=== PATIENT | female | born 2000 | race Caucasian/White ===

== ENCOUNTER 2025-08-11 13:02 | Emergency (ER) | payer BC, SELFPAY ==
--- NOTE | ~2025-08-11 | CT_ITS ---
CLINICAL HISTORY: lower abd pain --- Additional Notes or Special Instructions: No IV @ 17:01 - JR CT abdomen and pelvis with contrast Comparison: None available Findings: No consolidation at the lung bases. Underdistended gallbladder. Unremarkable bladder. Focal fat at the falciform ligament. 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 The other solid organs are unremarkable. No bowel wall thickening or dilation. A normal appendix is identified. Normal vasculature. No lymphadenopathy. No ascites. No acute osseous abnormality. Impression: No acute findings. This document has been electronically signed by: Opal Gaming MD on 08/11/2025 18:10:46
[2025-08-11 13:27] VITALS: BP 119/60; PULSE 91; RESP 20; TEMP 36.8; O2SAT 99; BMI 29.1
--- NOTE | 2025-08-11 13:27 | ED.GENADULT ---
HPI - General Adult General Chief complaint: Urogenital-Female Stated complaint: vaginal pressure, bruise on rt breast no inj Time Seen by Provider: 08/11/25 16:02 Related Data Allergies Allergy/AdvReac Type Severity Reaction Status Date / Time No Known Allergies Allergy Verified 08/11/25 13:29 [facility] Social History Social History Smoked in Last 30 Days: No Use of substances other than those prescribed or required for medical reasons: No Advance Directives: No Advance Directives Information Provided: No Do you have a plan to hurt others: No Plan Patient : No Physical Exam ED Vital Signs: Vital Signs - 24 hr 08/11/25 13:27 08/11/25 16:06 Temperature 98.2 F 98.6 F Pulse Rate 91 74 Respiratory Rate 20 16 Blood Pressure 119/60 109/70 Pulse Oximetry 99 100 Oxygen Delivery Method Room Air Room Air BMI result Body Mass Index 29.1 Course Course Course Narrative: Rapid medical examination performed in triage by Gilda Hussein PA-C. Patient is a 25 year old assigned female at presenting to the emergency department with a right breast bruise without trauma and pelvic pressure. Patient states she noticed her right breast has some yellow discoloration like a bruise even though she has had no trauma to the area and is having pelvic pressure. Detailed physical exam and review of systems are deferred to the flying teacher. Labs ordered. Patient placed back in the waiting room pending room availability and results. Medications Administered Discontinued Medications Generic Name Dose Route Start Last Admin Trade Name Felipeq PRN Reason Stop Dose Admin Iohexol 85 ml 08/11/25 17:44 08/11/25 17:44 Iohexol 350 Mg/Ml 100 Ml Infus..Btl IV 08/11/25 17:45 85 ml ONCE ONE Administration Ketorolac Tromethamine 15 mg 08/11/25 16:43 08/11/25 17:05 Ketorolac Tromethamine 15 Mg/Ml Vial IVPUSH 08/11/25 16:44 15 mg ONCE ONE Administration Medical Decision Making Lab Data 08/11/25 13:38 08/11/25 13:38 Labs: Lab Results 08/11/25 08/11/25 08/11/25 Range/Units 13:38 16:09 17:03 WBC 6.1 (4.8-10.8) X10*3/uL RBC 4.37 (4.20-5.50) X10*6/uL Hgb 13.8 (12.0-16.0) g/dl Hct 40.2 (37.0-47.0) % MCV 92.0 (80.0-98.0) fL MCH 31.6 (27.0-33.0) pg MCHC 34.3 (31.0-35.0) g/dl RDW 11.6 (11.0-16.0) % Plt Count 208 (160-400) X10*3/uL MPV 9.4 (9.4-12.3) fL Immature Gran % (Auto) 0.2 (0.0-0.4) % Neut % (Auto) 65.4 (45-73) % Lymph % (Auto) 24.4 (20-40) % [place] % (Auto) 6.9 (2-11) % Eos % (Auto) 2.6 (0-4) % Baso % (Auto) 0.5 (0-2) % Lymph # (Auto) 1.5 (1.2-4.9) X10*3/uL [place] # (Auto) 0.4 (0.1-1.2) X10*3/uL Eos # (Auto) 0.2 (0.0-0.4) X10*3/uL Baso # (Auto) 0.0 (0.0-0.2) X10*3/uL Abs Immat Gran (auto) 0.01 (0.00-0.03) X10*3/uL Absolute Neuts (auto) 4.0 (2.0-8.3) x10*3/uL Absolute Nucleated RBC 0.000 (0.0-0.012) X10*3/uL Nucleated RBC % (auto) 0.0 (0.0-0.2) /100WBC PT 12.1 (10.9-12.4) SEC INR 1.1 (0.9-1.1) Sodium 142 (135-145) mmol/L Potassium 3.7 (3.3-5.1) mmol/L Chloride 110 H (96-108) mmol/L Carbon Dioxide 27 (22-29) mmol/L Anion Gap 9 L (12-20) BUN 14 (9-16) mg/dL Creatinine 0.82 (0.5-1.4) mg/dL Estim Creat Clear Calc 105.1 Estimated GFR > 60 Random Glucose 79 (60-115) mg/dL Calcium 8.9 (8.4-10.2) mg/dL Magnesium 2.0 (1.6-2.6) mg/dL Total Bilirubin 0.6 (0.0-1.0) mg/dL AST 15 (5-31) U/L ALT 9 (0-31) U/L Alkaline Phosphatase 45 (39-117) U/L Total Protein 7.0 (6.5-8.0) g/dL Albumin 4.3 (3.5-5.0) g/dL Beta HCG, Quant < 2 mIU/mL Urine Color Yellow Urine Appearance Clear Urine pH 8.0 (5.0-9.0) Ur Specific [place] <= 1.005 (1.005-1.025) Urine Protein Negative (Neg-Trace) mg/dL Urine Glucose (UA) Negative (Negative) mg/dL Urine Ketones Negative (Negative) mg/dL Urine Blood Large (3+) H (Negative) Urine Nitrite Negative (Negative) Ur Leukocyte Esterase Small (1+) H (Negative) Urine RBC 0-2 (0-2) /HPF Urine WBC 0-5 (0-5) /HPF Ur Squamous Epith Cells 0-2 (0-2) /HPF Urine Bacteria None Seen (None Seen) Hyaline Casts 0-2 (0-2) /LPF Discharge Plan Discharge Clinical Impression: Abdominal pain Patient Disposition: Home, Self-Care Instructions: Abdominal Pain (ED) Additional Instructions: Risk of STD still exists. Please practice safe sex practices. Worsened pain return to the ED Referrals: [facility] [Primary Care Provider, Primary Care] - 08/13/25 Print Language: Persian
[2025-08-11 13:43] LABS: Hematocrit 40.2 % (37.0-47.0); Hemoglobin 13.8 g/dl (12.0-16.0); Imm Gran Abs Auto 0.01 X10*3/uL (0.00-0.03); Imm Gran Pct Auto 0.2 % (0.0-0.4); Lymphocytes Absolute Auto 1.5 X10*3/uL (1.2-4.9); MANUAL DIFF FLAG NO; Mean Corpuscular HGB Conc 34.3 g/dl (31.0-35.0); Mean Corpuscular Hemoglobin 31.6 pg (27.0-33.0); Mean Corpuscular Volume 92.0 fL (80.0-98.0); NRBC Abs Auto 0.000 X10*3/uL (0.0-0.012); NRBC Pct Auto 0.0 /100WBC (0.0-0.2); Platelet Count 208 X10*3/uL (160-400); Red Blood Count 4.37 X10*6/uL (4.20-5.50); White Blood Count 6.1 X10*3/uL (4.8-10.8)
[2025-08-11 14:05] LABS: Alanine Aminotransferase 9 U/L (0-31); Albumin Level 4.3 g/dL (3.5-5.0); Alkaline Phosphatase 45 U/L (39-117); Anion Gap 9 (12-20); Aspartate Amino Transferase 15 U/L (5-31); Blood Urea Nitrogen 14 mg/dL (9-16); Calcium 8.9 mg/dL (8.4-10.2); Carbon Dioxide 27 mmol/L (22-29); Chloride 110 mmol/L (96-108); Creatinine Clr Calc Pharmacy 105.1; Estimated Glomerular Filt Rate > 60; Magnesium 2.0 mg/dL (1.6-2.6); Potassium 3.7 mmol/L (3.3-5.1); Sodium 142 mmol/L (135-145); Total Protein 7.0 g/dL (6.5-8.0)
[2025-08-11 16:06] VITALS: BP 109/70; PULSE 74; RESP 16; TEMP 37; O2SAT 100
[2025-08-11 16:16] LABS: Appearance Urine Clear; Glucose Urine UA Negative (Negative); PH 8.0 (5.0-9.0); Specific Gravity - Urine <= 1.005 (1.005-1.025); UMIC TRIGGER UACC YES
--- NOTE | 2025-08-11 16:16 | PC.NURSE ---
patient a&ox3, vss, c/o 05/08 low abd pain, labs and urine obtained, pt awaiting provider evaluation, call mary within reach, plan of care ongoing
--- OUTSIDE RECORDS SUMMARY | 2025-08-11 16:28 | XMS_ITS | Clinical Summary ---
Author Organization [facility] Address [address] [place] [address] Care Team Providers Care Head Of Music Name Role Phone Chris Wilkins MD Primary Care Provider [phone] Source Comments PLEASE NOTE, if this patient is a minor, it may be UNLAWFUL to discuss sensitive information that is contained in these records (such as FAMILY PLANNING, MENTAL HEALTH or SUBSTANCE ABUSE) with the minor patient's parent or other person without the patient's specific authorization.[facility] Allergies No known active allergies Medications etonogestreL (NEXPLANON) 68 mg implantIndicati ons: control counseling Please dispense one 1 1 Each 02/09/2022 Active drospirenone-et hinyl estradioL (MISHA) 3-0.03 mg per tablet Take 1 Tablet by mouth once daily 84 Tablet 3 07/13/2023 Active prenat.vits,mony ,jzo-xzog-rnhoq per tabletIndicatio ns:Positive test Take 1 Tablet by mouth once daily 90 Tablet 5 06/06/2024 Active fluconazole (DIFLUCAN) 150 mg tabletIndicatio ns:Yeast infection Take 1 tab PO today. Then take 1 tab PO in 72 hours if symptoms persist 2 Tablet 10/18/2024 Active Hospital, Clinic, or Other Facility Administered Medication Ordered Dose Route Frequency Start Date End Date Status Nexplanon 68 mg implant (etonogestreL)Indications :Encounter for removal and reinsertion of Nexplanon 68 mg sdrm EVERY 3 YEARS 04/27/2020 Active Active Problems Problem Noted Date Diagnosed Date Cyst of left ovary 11/28/2023 Overview (11/28/2023): 11/06/23: [facility] for [facility], Pelvic US showed 6.5cm L ovarian cyst. Recommend repeat in 6 to [address] 03/10/2023 Chlamydia 06/16/2018 Overview (04/03/2023): 04/03/23 - Doxycycline sent Resolved Problems Problem Noted Date Diagnosed Date Resolved Date Anemia 06/16/2018 12/03/2018 TMJ (temporomandibular joint disorder) 10/25/2017 03/10/2023 Overview (10/25/2017): 10-05-17: [facility], Areli - working on cervical And jaw ROM stretching/ strengthening Immunizations Immunization Administration Dates Next Due DTAP (DAPTACEL),5 PERTUSSIS ANTIGENS ,09/26/2003,08/22/2002,11/16 DTAP (Infanrix) 12/17/2004,09/19/2003,06/07/2002 Flu, Preservative Free 09/17/2019,09/18/2018, HEP B, PED/ADOL (AHYNPNR-H-UTTA/RECOMBIVAX-PEDS) 08/26/2002,2000,2000 HPV 9 (Gardasil) 03/30/2023,03/22/2017 HPV, QUADRIVALENT 07/10/2013 Hep A, Ped/adol, 2 Dose 06/14/2018,09/28/2017 Hep B vaccine, adolescent/hi gh risk infant dosage 07/31/2002,2000,2000 Hib (PRP-T) 06/26/2002,2000 Hib, unspecified 08/22/2002,06/07/2002 INFLUENZA, SEASONAL, INJECTABLE 07/17/2014,07/10,08/10/2007 IPV (IPOL) 12/27/2004, 5,08/26/2002,06/26,06/07/2002,08/22/2001,2000 MENINGOCOCCAL B (Bexsero), OMV 12/03/2018,2017 MENINGOCOCCAL MCV4P (MENACTRA) 03/22/2017 MENINGOCOCCAL VACCINE,CONJUG ATE (NON-INTERFACE) 07/10/2013 MMR (MMR II/Priorix) 12/27/2004,12/17/19 05,08/26/2002,07/31 PNEUMOCOCCAL CONJUGATE PCV 7 06/26/2002, 06/07/2002,07/17/2001,11/16 TDAP 07/10/2013 Varicella (Varivax), Live Vaccine 07/10/2013,,07/31/2002 Family History Medical History Relation Name Comments Diabetes Maternal Grandmother Hypertension Maternal Grandmother Kidney disease Maternal Grandmother Stroke Maternal Grandmother Diabetes Other Relation Name Status Comments Father Alive Maternal Grandmother Alive Mother Alive Other Social History Tobacco Use Types Packs/Day Years Used Date Smoking Tobacco: Never Passive Smoke Exposure: Never Smokeless Tobacco: Never Alcohol Use Standard Drinks/Week Comments Yes 0 (1 standard drink = 0.6 oz pur e alcohol) ocational Social Connections Answer Date Recorded Connectedness 0 07/06/2024 Financial Resource Strain Answer Date R ecorded Financial Resource Strain 0 2018 Stress Answer Date Recorded Stress 0 06/23/2019 Physical Activity Answer Date Recorded Physical Activity 0 06/23/2019 Food Insecurity Answer Date Recorded Food 0 07/25/2024 Transportation Needs Answer Date Record ed Transportation 0 06/23/2019 Housing Stability Answer Date Recorded Housing 0 06/23/2019 Safety and Environment Answer Date Manuel rded Safety 0 03/30/2023 Utilities Answer Date Recorded Utilities 0 06/23/2019 Employment Answer Date Recorded Employment 0 06/23/2019 Comments No Sex and Gender Information Value Date Recorded Sex Assigned at Female 09/28/2017 12:29 PM PST Legal Sex Female 8:50 AM PST Gender Identity Female 09/28/2017 12:29 PM PST Sexual Orientation Straight 09/28/2017 12 :29 PM PST 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 [employer] Not on file Not on file Not on file Last Filed Vital Signs Vital Sign Reading Time Taken Comments Blood Pressure 115/75 10/17/2024 3:56 PM EST Pulse 89 10/17/2024 3:56 PM EST Temperature 37.2 C (98.9 F) 10/17/2024 3:56 PM EST Respiratory Rate 18 10/17/2024 3:56 PM EST Oxygen Saturation 98% 03/15/2024 9:42 AM EDT Inhaled Oxygen Concentration - - Weight 73.9 kg (163 lb) 10/17/2024 3:56 PM EST Height 162.6 cm (5' 4 ) 02/09/2022 1:47 PM EDT Body Mass Index 27.98 02/09/2022 1:47 PM EDT Plan of Treatment Health Maintenance Due Date Last Done Comments Anxiety Screening 2000 HPV Screening 2000 Tobacco Screening 2000 Annual Wellness (Adult): Indicated (All Coverage) 02/09/2023 02/09/2022, 12/03/2018 Imm-DTaP/Tdap/Td (7 - Td or Tdap) 07/10/2023 07/10/2013, 12/27/2004, 12/17/2004, Additional history exists Relationship Safety Screening/Counseling 03/30/2024 03/30/2023, 02/09/2022 Cervical Cancer Screening 07/13/2024 Pap + HPV 07/13/2024 07/13/2023 Alcohol and Drug Screen 10/30/2024 03/30/20, 02/09/2022, 09/18/2018, Additional history exists Depression Annual Screen 10/30/2024 03/30/2023, 04/2015 LARC-Nexplanon implant 02/09/2025 02/09/2022 [id number]-55 ( season) 2025 Imm-Influenza (#1) 2025 09/17/2019, 1 11/18/2017, 09/28/2017, Additional history exists Pap Smear 07/13/2026 07/13/2023 Hypertension Screening (#1) 10/17/2027 Imm-Hepatitis B Discontinued 08/26/2002, 11/2001, 2000, Additional history exists Imm-Varicella Completed 07/10/2013, 07/31, 07/31/2002 Imm-Meningococcal B Completed 12/03/2018, 8 Imm-HPV Completed 03/30/2023, 02/28, 07/10/2013 HIV Screening Completed 04/04/2023, 11/2021, 09/30/2022, Additional history exists Hepatitis C Screening Completed 04/04/2023 , 09/30/2022, 09/30/2022 Cervical Ablation/Cold-Knife Conization Discontinued Cervical Cryotherapy Discontinued Colposcopy Discontinued Endometrial Biopsy Discontinued Excision/Leep Discontinued HPV Genotyping Discontinued Vaginal Pap Discontinued Vulvoscopy Discontinued Procedures Procedure Name Priority Date/Time Associated Diagnosis Comments THIN PREP PAP + HPV RNA E6/E7 (Q) Routine 07/13/2023 9:25 AM EDT control counseling HIV 1/2 AG & AB W/RFLX (4TH GEN) Routine 04/04/2023 4:05 PM EDT Screening for STDs (sexually transmitted diseases) HEPATITIS C AB W/RFLX HCV RNA, QT, RT PCR Routine 04/04/2023 4:05 PM EDT Screening for STDs (sexually transmitted diseases) from Last 3 Months or Most Recently Relevant to Health Maintenance Results * (ABNORMAL) THIN PREP PAP + HPV RNA E6/E7 (Q) (07/13/2023 9:25 AM EDT) CLINICAL INFORMATION See Note [facility] Comment:Normal exam LMP See Note [facility] Comment:[id number] PREV. PAP See Note [facility] Comment:NONE GIVEN PREV. BX See Note [facility] Comment:NONE GIVEN SOURCE See Note [facility] Comment:Cervix STATEMENT OF ADEQUACY See Note [facility] Comment: Satisfactory for evaluation. Endocervical/transformation zone component present. GENERAL CATEGORIZATION See Note(A) [facility] Comment:Cytology Results: Ep ithelial Cell Abnormality INTERPRETATION/RESU LT See Note(A) [facility] Comment: Atypical Squamous Cells of Undetermined Significance (ASC-US) PHONE TECHNICIAN See Note [facility] Comment: KF, CT(ASCP) CT screening location: [place] [address] PATHOLOGIST See Note [facility] Comment: Claudette Lu M.D. Direct , Board Certified in Anatomic and Clinical Pathology and Cytopathology (electronic signature) Consulting Pathologist [facility] [address] [place] [address] COMMENT [facility] HPV MRNA E6/E7 Detected (A) Not Detected [facility] Comment: Methodology: Direct Marketing Analyst-Mediated Amplification This assay detects E6/E7 viral messenger RNA (mRNA) from 14 high-risk HPV types (16,18,31,33,35,39,45,51,52,56,58,59,66,68). Cervical sources are required for HPV testing. If a vaginal source from a patient who has had a total hysterectomy with removal of cervix was submitted, please contact the testing laboratory for alternative testing options. For additional information, please refer to http://[employer].[facility] [facility]/faq/CUI508x1 (This link if provided for information/ educational purposes only.) CYTOLOGY Cervix uteri structure / Unknown 07/13/2023 9:25 AM EDT 07/14/2023 2:59 AM EDT Narrative [facility] - 07/18/2023 6:37 AM EDT EXPLANATORY NOTE: The Pap is a screening test for cervical cancer. It is not a diagnostic test and is subject to false negative and false positive results. It is most reliable when a satisfactory sample, regularly obtained, is submitted with relevant clinical findings and history, and when the Pap result is evaluated along with historic and current clinical information. Mark Young MD LAB - PATHOLOGY AND CYTOLOGY AM BULATORY Final Result [facility] [address] [place] [id number], [facility] [address] [place] [id number] * HEPATITIS C AB W/RFLX HCV RNA, QT, RT PCR (04/04/2023 4:05 PM EDT) HEPATITIS C ANTIBODY NON-REACT ALBERTO NON-REACT ALBERTO [facility] SIGNAL TO CUT-OFF 0.16 <1.00 [facility] Comment: HCV antibody was non-reactive. There is no laboratory evidence of HCV infection. In most cases, no further action is required. However, if recent HCV exposure is suspected, a test for HCV RNA (test code 93647) is suggested. For additional information please refer to http://education.[facility]/faq/FMM87b6 (This link is being provided for informational/ educational purposes only.) Blood Blood / Unknown 04/04/2023 4 :05 PM EDT 04/04/2023 4:05 PM EDT Narrative [facility] - 04/05/2023 5:00 PM EDT FASTING:NO us Chris Wilkins MD LAB - BLOOD DRAW Edited Result - Final Performing Organization Address [facility] de Phone Number [facility] [address] [address], [employer] [address] [phone] * HIV 1/2 AG & AB W/RFLX (4TH GEN) (04/04/2023 4:05 PM EDT) HIV AG/AB, 4TH GEN NON-REAC TIVE NON-REAC TIVE [employer] [facility] Comment: HIV-1 antigen and HIV-1/HIV-2 antibodies were not detected. There is no laboratory evidence of HIV infection. PLEASE NOTE: This information has been disclosed to you from records whose confidentiality may be protected by state law. If your state requires such protection, then the state law prohibits you from making any further disclosure of the information without the specific written consent of the person to whom it pertains, or as otherwise permitted by law. A general authorization for the release of medical or other information is NOT sufficient for this purpose. For additional information please refer to http://education.[place].[employer]/faq/NHU504 (This link is being provided for informational/ educational purposes only.) The performance of this assay has not been clinically validated in patients less than 2 years old. Blood Blood / Unknown 04/04/2023 4 :05 PM EDT 04/04/2023 4:05 PM EDT Narrative [employer] [facility] - 04/05/2023 5:00 PM EDT FASTING:NO us Chris Wilkins MD LAB - BLOOD DRAW Final Result Performing Organization Address [facility]/ZIP Co de Phone Number [facility] [address] [address], [employer] [facility] [address] [place] [address] from Last 3 Months or Most Recently Relevant to Health Maintenance Insurance [facility] Care Teams Head Of Music Relationship Specialty Start Date End Date Chris Wilkins MD [address] [place] [address] PCP - General Family Medicine, Physician 11/08/23
--- OUTSIDE RECORDS SUMMARY | 2025-08-11 16:28 | XMS_ITS | Clinical Summary ---
Author Organization [facility] Address [address] [place] [address] Phone Care Team Providers Care Older Worker Specialist Name Role Phone Unavailable Primary Care Provider Unavailabl e Social History Tobacco Use Types Packs/Day Years Used Date Smoking Tobacco: Never Assessed Comments Unknown Sex and Gender Information Value Date Recorded Sex Assigned at Not on file Legal Sex Female 10:34 PM EST Gender Identity Not on file Sexual Orientation Not on file Plan of Treatment Health Maintenance Due Date Last Done Comments HPV Vaccines (1 - 3-dose series) 2015 DTaP,Tdap,and Td Vaccines (1 - Tdap) 2019 Hepatitis B Vaccines (1 of 3 - 19+ 3-dose series) 2019 Cervical Cancer Screening: P ap Smear 2021 HIV Screening 11/28/2023 Hepatitis C Screening 11/28/2023 Social Influencers of Health Screening 11/28/2023 Depression Screening 10/30/2024 COVID-19 Vaccine (2023-2 5 season) 2025 Influenza Vaccine (#1) 2025 RSV Immunization Adult Patie nts (1 - 1-dose 75+ series) 2075 HIB Vaccines Aged Out No longer eligi ble based on patient's age to complete this topic Hepatitis A Vaccines Aged Out No long er eligible based on patient's age to complete this topic IPV Vaccines Aged Out No longer eligi ble based on patient's age to complete this topic MMR Vaccines Aged Out No longer eligi ble based on patient's age to complete this topic Meningococcal ACWY Vaccine Aged Out N o longer eligible based on patient's age to complete this topic Meningococcal B Vaccine Aged Out No l onger eligible based on patient's age to complete this topic Pneumococcal Vaccine: Pediat rics (0 to 5 Years) and At-Risk Patients (6 to 49 Years) Aged Out No longer eligible b ased on patient's age to complete this topic RSV Immunization Patients Un barry 20 months Aged Out No longer eligible b ased on patient's age to complete this topic Varicella Vaccines Aged Out No longer eligible based on patient's age to complete this topic
[2025-08-11 16:47] LABS: UACC Culture Trigger YES
--- NOTE | 2025-08-11 16:48 | ED.FEMALEGU ---
HPI - Female Genitourinary General Chief complaint: Urogenital-Female Stated complaint: vaginal pressure, bruise on rt breast no inj Time Seen by Provider: 08/11/25 16:02 History of Present Illness HPI Narrative: Patient is 25 years old presents today with having abdominal pain. The abdominal pain is over the lower abdomen. Patient denies any vaginal discharge she is currently having her menstruation. There is some nausea there is no vomiting. There is some decrease in appetite. There is no change in bowel movement. Patient is sexually active with 1 partner. There is no vaginal discharge that is different. There is no fever. He does not use a condom. Denies any chest pain denies any diaphoresis has been noticing some bruising to her chest into her thigh. Patient denies being assaulted. There is no trauma. Question as to why she has the bruising. Patient is from home. Related Data Allergies Allergy/AdvReac Type Severity Reaction Status Date / Time No Known Allergies Allergy Verified 08/11/25 13:29 Review of Systems Review of Systems: Positive abdominal pain Positive bruising Yes all other systems are reviewed and are negative [facility] Past Medical History Attestation statement: The following information was validated with the patient. Social History Social History Smoked in Last 30 Days: No Use of substances other than those prescribed or required for medical reasons: No Advance Directives: No Advance Directives Information Provided: No Do you have a plan to hurt others: No Plan Patient : No Physical Exam Exam: Exam: Appearance: Alert. Oriented X3. No acute distress. Eyes: Pupils equal, round and reactive to light. ENT: Pharynx normal. Neck: Normal inspection. Neck supple. No lymph nodes noted. No crepitus CVS: Normal heart rate and rhythm. Pulses normal. Normal S1 and S2 Respiratory: No respiratory distress. Breath sounds normal. No Wheezing. No rales Abdomen: Soft and nontender. No rigidity. No distention. good BS x4 Skin: Skin warm and dry. Bruising noted over the right breast and also over the right thigh area. Approximately the same age. Has a yellow hue. Both about 3 cm x 3 cm in size. Normal skin turgor. I examined patient's breasts bruising with the tech present. Extremities: No lower extremity edema. Neurovascular intact to all extremities. No Lacerations. No Rash Neuro: Oriented X 3. No motor deficit. No sensory deficit. Moving all extermities. No slurred speech Vital Signs: Vital Signs: Last Vital Signs Temp 98.6 F 08/11/25 16:06 Pulse 74 08/11/25 16:06 Resp 16 08/11/25 16:06 BP 109/70 08/11/25 16:06 Pulse Ox 100 08/11/25 16:06 O2 Del Method Room Air 08/11/25 16:06 BMI result Body Mass Index 29.1 Medications Administered Discontinued Medications Generic Name Dose Route Start Last Admin Trade Name Freq PRN Reason Stop Dose Admin Iohexol 85 ml 08/11/25 17:44 08/11/25 17:44 Iohexol 350 Mg/Ml 100 Ml Infus..Btl IV 08/11/25 17:45 85 ml ONCE ONE Administration Ketorolac Tromethamine 15 mg 08/11/25 16:43 08/11/25 17:05 Ketorolac Tromethamine 15 Mg/Ml Vial IVPUSH 08/11/25 16:44 15 mg ONCE ONE Administration Medical Decision Making Medical Decision Making [facility] Narrative: 25 years old presents today with having lower abdominal pain. Nonspecific. Patient denies any vaginal discharge. Denies any fever chills. Sexually active with 1 partner. Patient denies any history of abdominal surgery. CT scan of the abdomen pelvis is completely normal. There is no evidence of obstruction abscess perforation appendicitis. test is negative. There is no evidence for related issue. Patient's urine showed no signs of infection white count is normal. GC and chlamydia was still sent off. Patient is to follow-up on an outpatient basis Sam. Currently still finishing up her menstruation. In stable condition. Differential Diagnosis Differential Diagnoses: The differential diagnosis associated with the presentation includes related, kidney stone, UTI, STD Admission/Observation Consideration of admission/observation: Escalation of care including admission/observation considered Lab Data [facility] Lab Attestation statement: I reviewed the patient's lab results. 08/11/25 13:38 08/11/25 13:38 Labs: Lab Results 08/11/25 08/11/25 08/11/25 Range/Units 13:38 16:09 17:03 WBC 6.1 (4.8-10.8) X10*3/uL RBC 4.37 (4.20-5.50) X10*6/uL Hgb 13.8 (12.0-16.0) g/dl Hct 40.2 (37.0-47.0) % MCV 92.0 (80.0-98.0) fL MCH 31.6 (27.0-33.0) pg MCHC 34.3 (31.0-35.0) g/dl RDW 11.6 (11.0-16.0) % Plt Count 208 (160-400) X10*3/uL MPV 9.4 (9.4-12.3) fL Immature Gran % (Auto) 0.2 (0.0-0.4) % Neut % (Auto) 65.4 (45-73) % Lymph % (Auto) 24.4 (20-40) % [place] % (Auto) 6.9 (2-11) % Eos % (Auto) 2.6 (0-4) % Baso % (Auto) 0.5 (0-2) % Lymph # (Auto) 1.5 (1.2-4.9) X10*3/uL [place] # (Auto) 0.4 (0.1-1.2) X10*3/uL Eos # (Auto) 0.2 (0.0-0.4) X10*3/uL Baso # (Auto) 0.0 (0.0-0.2) X10*3/uL Abs Immat Gran (auto) 0.01 (0.00-0.03) X10*3/uL Absolute Neuts (auto) 4.0 (2.0-8.3) x10*3/uL Absolute Nucleated RBC 0.000 (0.0-0.012) X10*3/uL Nucleated RBC % (auto) 0.0 (0.0-0.2) /100WBC PT 12.1 (10.9-12.4) SEC INR 1.1 (0.9-1.1) Sodium 142 (135-145) mmol/L Potassium 3.7 (3.3-5.1) mmol/L Chloride 110 H (96-108) mmol/L Carbon Dioxide 27 (22-29) mmol/L Anion Gap 9 L (12-20) BUN 14 (9-16) mg/dL Creatinine 0.82 (0.5-1.4) mg/dL Estim Creat Clear Calc 105.1 Estimated GFR > 60 Random Glucose 79 (60-115) mg/dL Calcium 8.9 (8.4-10.2) mg/dL Magnesium 2.0 (1.6-2.6) mg/dL Total Bilirubin 0.6 (0.0-1.0) mg/dL AST 15 (5-31) U/L ALT 9 (0-31) U/L Alkaline Phosphatase 45 (39-117) U/L Total Protein 7.0 (6.5-8.0) g/dL Albumin 4.3 (3.5-5.0) g/dL Beta HCG, Quant < 2 mIU/mL Urine Color Yellow Urine Appearance Clear Urine pH 8.0 (5.0-9.0) Ur Specific [place] <= 1.005 (1.005-1.025) Urine Protein Negative (Neg-Trace) mg/dL Urine Glucose (UA) Negative (Negative) mg/dL Urine Ketones Negative (Negative) mg/dL Urine Blood Large (3+) H (Negative) Urine Nitrite Negative (Negative) Ur Leukocyte Esterase Small (1+) H (Negative) Urine RBC 0-2 (0-2) /HPF Urine WBC 0-5 (0-5) /HPF Ur Squamous Epith Cells 0-2 (0-2) /HPF Urine Bacteria None Seen (None Seen) Hyaline Casts 0-2 (0-2) /LPF Independent Interpretation I performed an independent interpretation of an: CT Scan (Grossly no obstruction no abscess no perforation) Radiology Impression Discussion of test interpretation with radiology: I have reviewed the radiologist's reading. Prescription Management I considered prescription management with: Pain Medication Social Determinants Patient?s care significantly limited by Social Determinants of Health including: Problems related to primary support group Discharge Plan Discharge Clinical Impression: Abdominal pain Patient Disposition: Home, Self-Care Instructions: Abdominal Pain (ED) Additional Instructions: Risk of STD still exists. Please practice safe sex practices. Worsened pain return to the ED Referrals: [facility] [Primary Care Provider, Primary Care] - 08/13/25 Print Language: R[place]an
[2025-08-11 17:21] LABS: INTERNATIONAL NORM RATIO 1.1 (0.9-1.1); Prothrombin Time 12.1 SEC (10.9-12.4)
[2025-08-11] MEDS: iohexoL 350 MG/ML 100 ML INFUS..BTL 85 ML IV (17:44)
[2025-08-11 19:33] VITALS: BP 114/78; PULSE 72; RESP 18; TEMP 36.8; O2SAT 99
[2025-08-12 06:11] LABS: CT PCR Urine DETECTED (Not Detect.); NG PCR Urine NOT DETECTED (Not Detect.)
== END 2025-08-11 19:36 | disposition home or self-care (01) ==
PROVIDERS: Physician Assistant Medical; Emergency Provider Emergency Medicine Emergency Medical Services; PCP Dentist General Practice
DX: R10.30 Lower abdominal pain, unspecified (principal); A74.9 Chlamydial infection, unspecified
CPT/HCPCS: 36415; 74177; 80053; 81001; 83735; 84702; 85025; 85610; 87086; 87491; 87591; 96374; 99284; 99285; J1885; Q9967

== ENCOUNTER → 2025-08-11 16:43 | Outpatient (BNV) | payer BC, SELFPAY | PROVIDERS: Emergency Provider Emergency Medicine Emergency Medical Services; PCP Dentist General Practice; Visit Provider Radiology Diagnostic Radiology | DX: R10.30 Lower abdominal pain, unspecified (principal) | CPT/HCPCS: 74177 ==